=== PATIENT | female | born 1990 | race American Indian/Alaskan Native ===

== ENCOUNTER → 2025-01-06 | Outpatient (CLI) | payer MEDICAID, SELFPAY ==
--- NOTE | 2025-01-06 | XR_ITS ---
Examination: PA lateral chest 2 views TECHNIQUE: Upright PA lateral chest 2 views Date and time: January 06, 2025, 1300 hours, comparison November 18, 2022 INDICATIONS: Post Covid infection 2020 with shortness of breath FINDINGS: Mild parenchymal disease left base No significant cardiac enlargement. No pulmonary edema. The osseous structures are intact IMPRESSION: Consider high resolution CT chest without contrast follow-up to exclude pulmonary fibrosis at the left lung base
== END | disposition home or self-care (01) ==
PROVIDERS: PCP Nurse Practitioner Family; Referring Provider Nurse Practitioner Family; Visit Provider Nurse Practitioner Family
DX: R91.8 Other nonspecific abnormal finding of lung field (principal)
CPT/HCPCS: 71046

== ENCOUNTER → 2025-02-20 | Outpatient (CLI) | payer MEDICAID, SELFPAY ==
--- NOTE | 2025-02-20 15:30 | XR_ITS ---
Examination: CT chest, without intravenous contrast. Sagittal and coronal 2-D reconstructions. Exam date and time: February 20, 2025, 1515 hours COMPARISON: December 19, 2020 INDICATIONS: Chest pain 5 years CTDI:vol (mGy) 10.7 DLP: (mGycm) 352 Technique: Multiple 3.0 mm axial sections of the chest to been obtained. Bone and lung density settings are obtained. Sagittal and coronal 2-D reconstructions have been obtained. Low dose protocols were performed. One or more of the following dose reduction techniques were used; automated exposure control, adjustment of the mA and/or KV according to patient size, use of iterative reconstruction technique. Findings: No thoracic aortic aneurysm dilatation Pulmonary artery segments are not enlarged. No paratracheal or tracheobronchial or bronchopulmonary adenopathy. No current pneumonia pulmonary edema or pulmonary nodules No visualized liver or splenic lesion Absent gallbladder No pancreatic mass Osseous structures intact IMPRESSION: No mediastinal lymphadenopathy No pneumonia or pulmonary edema pleural disease or pulmonary nodules
== END | disposition home or self-care (01) ==
PROVIDERS: PCP Nurse Practitioner Family; Referring Provider Nurse Practitioner Family; Visit Provider Nurse Practitioner Family
DX: J98.4 Other disorders of lung (principal); R07.81 Pleurodynia
CPT/HCPCS: 71250